=== PATIENT | female | born 1965 | race Caucasian/White ===

== ENCOUNTER → 2017-12-01 11:48 | Outpatient (CLI) | payer OTHER, SELFPAY | PROVIDERS: Visit Provider Family Medicine | DX: E03.9 Hypothyroidism, unspecified (principal); Z12.11 Encounter for screening for malignant neoplasm of colon | CPT/HCPCS: 36415; 84443 ==

== ENCOUNTER → 2017-12-09 11:03 | Outpatient (CLI) | payer OTHER, SELFPAY ==
[2017-12-12 15:10] LABS: Fecal Immunochemical Test NOT DETECTED
== END ==
PROVIDERS: Visit Provider Family Medicine
DX: Z12.11 Encounter for screening for malignant neoplasm of colon (principal)
CPT/HCPCS: 82274

== ENCOUNTER → 2019-05-01 10:40 | Outpatient (CLI) | payer OTHER, SELFPAY ==
[2019-05-01 13:46] LABS: Thyroid Stimulating Hormone 1.72 uIU/mL (0.47-4.68)
== END ==
PROVIDERS: PCP Family Medicine; Visit Provider Family Medicine
DX: E03.9 Hypothyroidism, unspecified (principal)
CPT/HCPCS: 36415; 84443

== ENCOUNTER → 2019-05-20 09:21 | Outpatient (CLI) | payer OTHER, SELFPAY ==
--- NOTE | 2019-05-20 09:22 | DI.RAD.S_ITS ---
PROCEDURE: XR HIP W PEL IF DONE RT 2V INDICATIONS: h/o hip fx s/p repair, fall, R hip/low back pain, r/o fx TECHNIQUE: AP pelvis with lateral view(s) of the right hip(s). COMPARISON: None. FINDINGS: Bones: Postsurgical changes compatible with ORIF of right femur fracture with placement of dynamic compression screw with sideplate. No fractures or dislocations. Pelvic ring appears intact. No suspicious bony lesions. Soft tissues: The visualized bowel gas pattern is normal. No suspicious soft tissue calcifications. IMPRESSION: Status post ORIF of right femur fracture. No acute fracture identified. No acute osseous lesion. If symptoms and/or clinical suspicion for pathology persists, further assessment with repeat radiographs (7-10 days) or advanced imaging (e.g. CT, MRI or bone scan) may be helpful. Dictated by: Danielle Mejía MD, PhD on 05/20/2019 at 10:06 Approved by: Danielle Mejía MD, PhD on 05/20/2019 at 10:07
--- NOTE | 2019-05-20 09:22 | DI.RAD.S_ITS ---
PROCEDURE: XR LUMBAR SPINE MIN 4V INDICATIONS: fall, R hip/low back pain, r/o fx TECHNIQUE: 5 views of the lumbar spine were acquired. COMPARISON: None. FINDINGS: Bones: 5 nonrib-bearing vertebrae are present. There is grade 1 L5-S1 isthmic spondylolisthesis.. No vertebral body compression fractures. No suspicious bony lesions. Soft tissues: Overlying bowel gas pattern is normal. No suspicious soft tissue calcifications. Oblique images: L5 pars interarticularis defects. IMPRESSION: 1. Grade 1 L5-S1 isthmic spondylolisthesis. 2. No acute fracture. No acute osseous lesion. If symptoms and/or clinical suspicion for pathology persists, evaluation with MRI may be helpful for further assessment. Dictated by: Danielle Mejía MD, PhD on 05/20/2019 at 10:02 Approved by: Danielle Mejía MD, PhD on 05/20/2019 at 10:03
== END ==
PROVIDERS: Family Provider Family Medicine; PCP Family Medicine; Visit Provider Physician Assistant
DX: M25.551 Pain in right hip (principal); M43.17 Spondylolisthesis, lumbosacral region
CPT/HCPCS: 72110; 73502

== ENCOUNTER → 2019-07-29 11:04 | Outpatient (CLI) | payer BC, SELFPAY ==
[2019-08-02 13:06] LABS: Fecal Immunochemical Test NOT DETECTED (NOT DETECTED)
== END ==
PROVIDERS: Family Provider Family Medicine; PCP Family Medicine; Referring Provider Family Medicine; Visit Provider Family Medicine
DX: Z12.11 Encounter for screening for malignant neoplasm of colon (principal)
CPT/HCPCS: 82274

== ENCOUNTER → 2020-08-09 16:52 | Outpatient (CLI) | payer BC, SELFPAY ==
--- NOTE | 2020-08-09 16:54 | DI.RAD.S_ITS ---
PROCEDURE: XR LUMBAR SPINE MIN 4V INDICATIONS: low back pain TECHNIQUE: 5 views of the lumbar spine were acquired, including bilateral oblique views. COMPARISON: [facility], CR, XR LUMBAR SPINE MIN 4V, 05/20/2019, 9:30. FINDINGS: Bones: 5 nonrib-bearing vertebrae are present. There is normal bony alignment. No vertebral body compression fractures. No suspicious bony lesions. There is moderately severe degenerative changes at the L5-S1 level where disc height reduction is moderately severe, and present to a moderate degree of L5 on S1 and facet osteoarthritis is pronounced, likely resulting in significant foraminal stenosis and possible spinal stenosis Soft tissues: Overlying bowel gas pattern is normal. No suspicious soft tissue calcifications. Oblique images: No pars defects. IMPRESSION: Worsening degenerative disc disease and facet osteoarthritis especially at the lumbosacral junction, with likelihood of significant spinal and foraminal stenosis at this level. No prior compression fracture is found. Dictated by: Misael Martinez M.D. on 08/09/2020 at 19:32 Approved by: Misael Martinez M.D. on 08/09/2020 at 19:34
== END ==
PROVIDERS: Family Provider Family Medicine; PCP Family Medicine; Referring Provider Family Medicine; Visit Provider Family Medicine
DX: M54.5 Low back pain (principal); M51.37 Other intervertebral disc degeneration, lumbosacral region; M47.817 Spondylosis without myelopathy or radiculopathy, lumbosacral region
CPT/HCPCS: 72110

== ENCOUNTER → 2020-08-25 15:57 | Outpatient (CLI) | payer OTHER, SELFPAY ==
[2020-08-25 17:16] LABS: COVID19 -Nasal RAPID Negative (Negative)
== END ==
PROVIDERS: Family Provider Family Medicine; PCP Family Medicine; Visit Provider Surgery
DX: Z20.822 Contact with and (suspected) exposure to COVID-19 (principal)
CPT/HCPCS: 87635; C9803

== ENCOUNTER 2020-08-28 07:33 | Day surgery (SDC) | payer OTHER, SELFPAY ==
[2020-08-28 07:52] VITALS: BP 139/90; PULSE 78; RESP 18; TEMP 36.6; O2SAT 95; BMI 30.1
[2020-08-28] MEDS: LACTATED RINGERS 1,000 ML 200 ML IV (08:03)
--- NOTE | 2020-08-28 08:26 | P.HP_ITS ---
History of Present Illness History of Present Illness Date Patient Seen: 08/28/20 Time Patient Seen: 08:26 Chief complaint: SDC Narrative: The patient presents for colorectal sreening. They have never had any previous examination for such. No personal history of colon cancer or first- degree relatives with colon cancer. On further history denies any recent gastrointestinal symptoms. No nausea, vomiting, abdominal pain, loss of appetite, unexplained weight loss, change in bowel habits, diarrhea, constipation, melena, hematochezia, or bright red blood per rectum. Patient History Medical History Anemia (~2011) Chicken pox (~1970) Depression (~1985) Fractures Hay fever (~1978) Hemorrhoid (~2013) History of urinary incontinence (~2012) Hypothyroidism (~2003) Migraines (~1993) Osteopenia Spondylolisthesis Surgical History Anesthesia History of tonsillectomy (~1970) Status post appendectomy (~1989) Status post tubal ligation (~2010) Surgical procedure planned (~2012) Family & Social History Family History Father Age: 85 Hypertension High cholesterol Grandmother Colon cancer Mother Age: 85 Hypertension High cholesterol Sister Age: 62 Stroke Social History: household members spouse lives independently Yes Tobacco & Substance use: Smoking Status Never smoker alcohol intake never Substance Use Type does not use Meds Home Medications and Allergies Home Medications Medication Instructions Recorded Confirmed Type lorazepam 0.5 mg tablet See Rx Instructions .ROUTE 02/10/20 08/28/20 Rx .COMPLEX #20 tab levothyroxine 112 mcg tablet 112 mcg PO QAM #90 tab 08/07/20 08/28/20 Rx sertraline 50 mg tablet 50 mg PO QDAY #90 tab 08/14/20 08/28/20 Rx ferrous sulfate [Iron (ferrous 325 mg PO DAILY 08/28/20 08/28/20 History sulfate)] Allergies Allergy/AdvReac Type Severity Reaction Status Date / Time Sulfa (Sulfonamide Allergy Mild skin Verified 05/25/19 15:32 Antibiotics) peeling, [SULFA (SULFONAMIDE hands and ANTIBIOTICS)] feet zolmitriptan [ZOLMITRIPTAN] Allergy Mild cold nose Verified 05/25/19 15:32 and cheeks Review of Systems Review of Systems ROS: Yes All systems reviewed with the patient and are negative except as otherwise documented Exam Vital Signs (past 8 hours): - 08/28/20 07:52 Temperature 97.8 F Pulse Rate 78 Respiratory Rate 18 Blood Pressure 139/90 Pulse Oximetry 95 Oxygen Delivery Method Room Air Oxygen Flow Rate 0 Narrative Exam Narrative: General-no acute distress, adult woman HEENT-moist mucous membranes, no scleral icterus Neck-supple, no lymphadenopathy Chest- non labored respirations, clear to auscultation bilaterally Cardiac-regular rate no peripheral edema Abdomen-soft, nontender nondistended Extremities-warm, well perfused Neurological-alert and oriented, no focal deficits Assessment & Plan Assessment & Plan narrative: The patient requires colorectal screening and colonoscopy is recommended. Technical details were discussed. Risks, benefits, alternatives explained. Risks including but not limited to myocardial infarction, aspiration, bleeding, pain, missed lesion, incomplete examination, need for further radiographic studies, colonic perforation, and need for major abdominal surgery were discussed. All questions were answered to their satisfaction, and they are in agreement with this plan. Quality MIPS - Admit Advanced Care Plan / Current Medications Measures: #47 ? Advanced Care Plan Clinician documentation instruction: document at admission. [] I confirmed that the patient's Advance Care Plan is present, code status is documented, or surrogate decision maker is listed in the patient?s medical record. [SATISFIES MIPS PERFORMANCE] If Yes, Stop Here [] The patient?s Advance Care plan is not present because: (select) [MIPS PERFORMANCE EXCEPTION/EXCLUSION] [] I confirmed today that the patient does not wish or was not able to name a surrogate decision maker or provide an Advance Care Plan. [] Hospice care is currently being provided or has been provided this calendar year [] I did NOT confirm today the presence of an Advance Care Plan or surrogate decision maker documented within the patient's medical record. [DOES NOT SATISFY MIPS PERFORMANCE] #130 - Documentation of Current Medications in the Medical Record Clinician documentation instruction: use macro the first time you see a patient. [] I have utilized all available immediate resources to obtain, update, or review the patient?s current medications. [SATISFIES MIPS PERFORMANCE] If Yes, Stop Here [] The patient is not eligible for medication reconciliation; the patient is in an emergent medical situation where delaying treatment would jeopardize the patient?s health. [MIPS PERFORMANCE EXCEPTION/EXCLUSION] [] I did NOT confirm, update or review the patient's current list of medications today. [DOES NOT SATISFY MIPS PERFORMANCE] MIPS - CL Central Venous Catheter Placement Measure: #76 ? Prevention of Central Venous Catheter (CVC) ? Related Bloodstream Infection Clinician documentation instruction: use macro every time you place a central line. [] All elements of Maximal Sterile Barrier Technique, including hand hygiene, skin prep, and sterile ultrasound technique (if used) were followed. [SATISFIES MIPS PERFORMANCE] If Yes, Stop Here [] If ?No?, the medical reason all elements were NOT used for medical reason [] (ex. emergent condition). [] Maximal Sterile Barrier Technique was not followed, no reason provided [DOES NOT SATISFY MIPS PERFORMANCE] MIPS - DC Heart Failure Measures: #5 - Heart Failure (HF): Angiotensin-Converting Enzyme (MINDA) Inhibitor or Angiotensin Receptor Junito (ARB) Therapy for Left Ventricular Systolic Dysfunction (LVSD) and #8 - Heart Failure (HF): Beta-Junito Therapy for Left Ventricular Systolic Dysfunction (LVSD) Clinician documentation instruction: use macro at every CHF discharge. [] The patient has current or prior documentation of left ventricular ejection fraction (LVEF) less than 40%, or moderate or severely depressed left ventricular systolic function. Answer both: [SATISFIES MIPS PERFORMANCE] [] The patient was prescribed or already taking an Angiotensin-Converting Enzyme (MINDA) Inhibitor, or Angiotensin Receptor Junito (ARB). [] The patient was prescribed or already taking a beta-junito. If Yes to Both, Stop Here [] Patient not prescribed/taking: [MIPS PERFORMANCE EXCEPTION/EXCLUSION] [] MINDA or ARB for medical/patient/system reason(s) including [] (ex. allergy, intolerance, contraindication) [] Beta-junito for medical/patient/system reason(s) including [] (ex. allergy, intolerance, contraindication) [] Patient not prescribed/taking: [DOES NOT SATISFY MIPS PERFORMANCE] [] MINDA or ARB, no reason given [] Beta-junito, no reason given
[2020-08-28] MEDS: MIDAZOLAM 5 MG/5 ML VIAL IV (08:36)
[2020-08-28] MEDS: fentaNYL 250 MCG/5 ML INJ IV (08:37)
--- NOTE | 2020-08-28 09:13 | PM.OP.ENDO ---
Operative Date/Time/Diagnoses Date of procedure: 08/28/20 Time of procedure: 09:13 Pre-op diagnosis: Screening colonoscopy Post-op diagnosis: same Procedure & Clinicians Study performed: Colonoscopy Same procedure as scheduled: Yes Indications: 54-year-old woman no prior colonoscopy here for routine screening Surgeon: Guerrero Diggs Procedure Notes Procedure in detail: Medications: Conscious sedation using 5mg IV midazolam and 150mcg IV of fentanyl The history and physical was performed/updated and the patient is ASA class is 1. The procedure was discussed in detail with the patient. Potential risks complications including infection, bleeding, missed diagnosis, perforation, need for surgery, and were explained. Their questions were answered and informed consent was obtained. Patient was brought to the procedure room and placed standard monitoring equipment. The patient's vital signs were monitored continuously throughout the entire procedure. Prior to starting time-out was performed. The patient was placed in the left lateral recumbent position. Procedural sedation was administered. Examination began with a thorough inspection of the perianal area there was no evidence of fissures, fistulae, external hemorrhoids or cutaneous malignancy. The colonoscopy scope was then placed into the anal canal and was advanced to the cecum, which was identified by the ileocecal valve, the appendiceal orifice and the confluence of the taenia. The scope was then slowly withdrawn examining colon thoroughly in all directions, irrigating it of any residual stool. No masses or polyps Sigmoid diverticulosis The patient tolerated the procedure well. They will be discharged once criteria are met. The prep was of good/excellent quality. The withdrawl time was 7 minutes. The sedation time was 32 minutes. Specimen(s): none sent Complications: none Impression: Normal colonoscopy Post-procedure Recommendations: Colonscopy in 10 years Disposition: same day surgery
[2020-08-28 09:17] VITALS: BP 107/65; PULSE 68; RESP 14; TEMP 36.7; O2SAT 95
[2020-08-28 09:22] VITALS: BP 104/61; PULSE 68; RESP 13; O2SAT 94
[2020-08-28 09:27] VITALS: BP 108/60; PULSE 64; RESP 13; O2SAT 98
[2020-08-28 09:32] VITALS: BP 114/76; PULSE 63; RESP 12; O2SAT 95
[2020-08-28 09:45] VITALS: BP 117/74; PULSE 59; RESP 16; TEMP 36.9; O2SAT 95
== END 2020-08-28 09:50 | disposition home or self-care (01) ==
PROVIDERS: Family Provider Family Medicine; PCP Family Medicine; Referring Provider Family Medicine; Visit Provider Surgery
PROC: 0DJD8ZZ Inspection of Lower Intestinal Tract, Via Natural or Artificial Opening Endoscopic (ICD-10-PCS; CPT 45378; principal; 2020-08-28 08:30)
DX: K57.30 Diverticulosis of large intestine without perforation or abscess without bleeding (principal); Z12.11 Encounter for screening for malignant neoplasm of colon; E03.9 Hypothyroidism, unspecified; D64.9 Anemia, unspecified
CPT/HCPCS: 45378; 99152; 99153; J2250; J3010

== ENCOUNTER → 2020-08-30 07:36 | Outpatient (CLI) | payer OTHER, SELFPAY ==
[2020-08-30 08:10] LABS: Add Manual Diff / Slide Review NO; Basophils Absolute Auto 0 /uL (0-100); Basophils Percent Auto 1.1 % (0-2); Eosinophils Absolute Auto 200 /uL (0-450); Eosinophils Percent Auto 4.8 % (2-4); Hemoglobin 13.6 g/dL (12.0-16.0); Lymphocytes Absolute Auto 1800 /uL (1100-4500); Mean Corpuscular HGB Conc 33.9 % (30-36); Mean Corpuscular Hemoglobin 29.2 PG (26-34); Monocytes Absolute Auto 300 /uL (0-900); Monocytes Percent Auto 7.6 % (3-14); Neutrophils Absolute Auto 1700 /uL (1500-7000); Neutrophils Percent Auto 41.5 % (50-75); Platelet Count 217 X10^3/uL (150-400); Red Blood Cell Count 4.65 X10^6/uL (4.0-5.2); Red Cell Distribution Width 12.9 % (11.6-14.8)
[2020-08-30 08:24] LABS: Alanine Aminotransferase 29 IU/L (<35); Albumin 4.6 g/dL (3.5-5.0); Albumin Globulin Ratio 1.4 (1.0-2.8); Alkaline Phosphatase 98 U/L (38-126); Aspartate Aminotransferase 35 IU/L (14-36); BUN Creatinine Ratio 22.1 (6-22); Bilirubin Total 0.4 mg/dL (0.2-1.3); Blood Urea Nitrogen 17 mg/dL (7-17); Calcium 9.9 mg/dL (8.4-10.2); Carbon Dioxide 30 mmol/L (22-32); Chloride 102 mmol/L (98-107); Cholesterol 212 mg/dL (140-199); Estimated Glomerular Filt Rate > 60.0 mL/min (>60); Globulin 3.3 g/dL (1.7-4.1); Glucose 95 mg/dL (70-100); HDL Cholesterol 56 mg/dL (40-60); HEMOLYSIS < 15 (0-50); LDL Cholesterol Calculated 116 mg/dL (<100); Potassium 4.6 mmol/L (3.4-5.1); Sodium 140 mmol/L (137-145); Total Protein 7.9 g/dL (6.3-8.2); Triglycerides 200 mg/dL (35-150)
== END ==
PROVIDERS: Family Provider Family Medicine; PCP Family Medicine; Referring Provider Family Medicine; Visit Provider Family Medicine
DX: E03.9 Hypothyroidism, unspecified (principal)
CPT/HCPCS: 36415; 80053; 80061; 84443; 85025

== ENCOUNTER → 2020-09-19 16:10 | Outpatient (CLI) | payer OTHER, SELFPAY ==
--- NOTE | 2020-09-19 16:13 | DI.MG.S_ITS ---
BILATERAL DIGITAL SCREENING MAMMOGRAM 3D/2D WITH CAD: 09/19/2020 CLINICAL: Routine screening. Comparison is made to exams dated: 10/18/2016 mammogram, 08/10/2015 mammogram, 02/22/2011 mammogram, and 09/10/2006 mammogram - [facility]. The tissue of both breasts is heterogeneously dense. This may lower the sensitivity of mammography. Current study was also evaluated with a Computer Aided Detection (CAD) system. No significant masses, calcifications, or other findings are seen in either breast. There has been no significant interval change. IMPRESSION: NEGATIVE There is no mammographic evidence of malignancy. A 1 year screening mammogram is recommended. This exam was interpreted at Station ID: [id number]. NOTE: For mammograms, a report in lay terms will be sent to the patient. Approximately 15% of breast malignancies will not be visualized mammographically. In the management of a palpable breast mass, a negative mammogram must not discourage biopsy of a clinically suspicious lesion. Electronically Signed By: Landen long/aleksandar:09/20/2020 07:24:03 letter sent: Normal Exam ACR BI-RADS Category 1: Negative [id number]
--- NOTE | 2020-09-19 16:13 | DI.MRI.S_ITS ---
PROCEDURE: MR LUMBAR SPINE WO CON COMPARISON: [facility], CR, XR HIP W PEL IF DONE RT 2V, 05/20/2019, 9:30. [facility], CR, XR LUMBAR SPINE MIN 4V, 05/20/2019, 9:30. [facility], CR, XR LUMBAR SPINE MIN 4V, 08/09/2020, 17:08. INDICATIONS: Right L5 radiculopathy FINDINGS: CONUS MEDULLARIS: Conus terminates normally at L1-2. The distal cord, conus, and cauda equina have normal signal. PARASPINAL AREA: There is no paraspinal soft tissue mass or fluid collection. The visualized kidneys and adrenal glands are grossly normal. The aorta has a normal caliber. BONES: No abnormal marrow signal. Vertebral body heights are maintained. There is facet arthrosis at L5-S1 with possible pars defects. LUMBAR DISC LEVELS: L1-L2: There is no significant disc bulge. The foramina and central canal are patent. L2-L3: There is no significant disc bulge. The foramina and central canal are patent. L3-L4: There is no significant disc bulge. The foramina and central canal are patent. L4-L5: Diffuse disc bulge causing minimal foraminal stenosis. The central canal is patent. L5-S1: There are degenerative changes of L5-S1 with grade 1 anterolisthesis and a diffuse disc bulge. Disc bulge causes [id number] bilateral foraminal stenosis. No focal protrusion or extrusion.. The central canal is widely patent. IMPRESSION: 1. Degenerative disc disease, most severe at L5-S1 with grade 1 anterolisthesis and mild to moderate bilateral foraminal stenosis. 2. No significant central canal stenosis. Dictated by: Niraj Degroot M.D. on 09/20/2020 at 8:33 Approved by: Niraj Degroot M.D. on 09/20/2020 at 8:46
== END ==
PROVIDERS: Family Provider Family Medicine; PCP Family Medicine; Referring Provider Physical Medicine & Rehabilitation; Visit Provider Physical Medicine & Rehabilitation
DX: Z12.31 Encounter for screening mammogram for malignant neoplasm of breast (principal); M43.17 Spondylolisthesis, lumbosacral region; M51.17 Intervertebral disc disorders with radiculopathy, lumbosacral region; M48.07 Spinal stenosis, lumbosacral region
CPT/HCPCS: 72148; 77063; 77067

== ENCOUNTER → 2020-09-26 15:50 | Outpatient (CLI) | payer OTHER, SELFPAY ==
[2020-09-26 16:28] LABS: COVID19 -Nasal RAPID Negative (Negative)
== END ==
PROVIDERS: Family Provider Family Medicine; PCP Family Medicine; Visit Provider Physical Medicine & Rehabilitation
DX: Z20.822 Contact with and (suspected) exposure to COVID-19 (principal)
CPT/HCPCS: 87635; C9803

== ENCOUNTER 2020-09-28 09:28 | Outpatient (CLI) | payer OTHER, SELFPAY ==
[2020-09-28] VITALS (8 sets, daily range): BP systolic 102–129; BP diastolic 60–79; PULSE 62–86; RESP 10–19; TEMP 36.6–36.9; O2SAT 2–97
--- NOTE | 2020-09-28 09:32 | DI.RAD.S_ITS ---
PROCEDURE: PAIN L/S TRANSFORAMINAL INJECT INDICATIONS: SPONDYLOSIS COMPARISON: [facility], CR, XR LUMBAR SPINE MIN 4V, 08/09/2020, 17:08. FINDINGS: Fluoroscopic spot filming was performed to verify placement of a spinal needle at the L5-S1 level, as labeled on the films. Appropriate location of the needle tip was confirmed by injection of iodinated contrast. IMPRESSION: No significant intraprocedural abnormality. Dictated by: Greg Nuñez M.D. on 09/28/2020 at 10:50 Approved by: Greg Nuñez M.D. on 09/28/2020 at 10:50
[2020-09-28] MEDS: fentaNYL 100 MCG/2 ML INJ 50 MCG IV (10:26)
[2020-09-28] MEDS: MIDAZOLAM 5 MG/5 ML VIAL IV (10:26)
[2020-09-28] MEDS: BUPIVACAINE 0.25% (PF) VIAL 2 ML INJ (10:31)
[2020-09-28] MEDS: BETAMETHASONE 30 MG/5 ML MDV 6 MG INJ (10:31)
[2020-09-28] MEDS: IOPAMIDOL 15 ML VIAL 3 ML INJ (10:31)
[2020-09-28] MEDS: DEXAMETHASONE 10 MG/ML VIAL 20 MG INJ (10:32)
--- NOTE | 2020-09-28 10:42 | P.PCN_ITS ---
Date/Time/Diagnoses Date of procedure: 09/28/20 Time of procedure: 10:42 Pre-procedure diagnosis: 1. FORAMINAL STENOSIS WITH LE SYMPTOMS Post-procedure diagnosis: same Procedure Notes Procedure: 1. FLUOROSCOPICALLY GUIDED CONTRAST CONTROLLED TRANSFORAMINAL EPIDURAL STEROID INJECTION - RIGHT L5/S1 TFESI Indications: Valeria is referred by Dr. Perry for treatment of Foraminal Stenosis with Right LE Symptoms Physician: Jean Pierre Gamble Total Fluoroscopy time (seconds): 7 Total sedation minutes: 13 Complications: none Procedure in detail & Post-procedure care: FINDINGS Foraminal Nerve Root Compression secondary to disc disease and facet hypertrophy DESCRIPTION OF PROCEDURE Following review of allergy and review of potential side effects and complications, including, but not necessarily limited to, infection, allergic reaction, local tissue breakdown, stroke, temporary or permanent nerve injury, paralysis, and possible , the patient indicated that the patient understood and agreed to proceed. An informed consent document was signed by the patient, witnessed by a nurse, and placed in the patient's chart. Additionally, other treatment options including medications, modalities, and physical therapy were reviewed with the patient. After review of previous anaesthesic history and IV conscious sedation the patient was deemed safe to proceed with today?s procedure with IV conscious sedation as ASA class II designation. Safety time-out was performed to confirm patient ID, procedure to be performed and site of procedure. IV sedation was accomplished with a combination of 2mg of Versed and 50mcg of Fentanyl was administered by the RN after DO order, titrated to patient comfort during the course of the procedure while the patient remained responsive to all verbal commands In the prone position following sterile prep and drape of the lumbar region, the right L5/S1 posterior neuroforamen was identified fluoroscopically. The skin was anesthetized via a 25-gauge 1.5-inch needle with 1% lidocaine solution. At this point, a 25-gauge 3.5-inch spinal needle was atraumatically introduced and advanced under fluoroscopic guidance through the posterior right L5/S1 neuroforamen to approximately the anterior aspect of the canal. Depth was confirmed on lateral view. Following negative aspiration, injection of approximately 1.5cc of Isovue 200 under live fluoroscopy in the AP view confirmed excellent flow along the nerve root, into the epidural space without vascular or intrathecal uptake observed Radiological data, including multiple fluoroscopic views of the lumbosacral spine, reveal a spinal needle at the right L5/S1 posterior neuroforamen. Subsequent views show flow of contrast material flowing superiorly and inferiorly along the nerve root confirming epidural flow. Subsequently, a test dose of 1.5 cc of 1% lidocaine solution was administered and patient was observed for two minutes for signs or symptoms of complications, including abdominal pain, shortness of breath, bilateral upper or lower extremity weakness, nausea and vomiting, prior to steroid injection. At this point, a total of 3cc or 20mg of dexamethasone and 6mg of betamethasone was injected without incident. The procedure tolerated the procedure well without signs or symptoms of complications prior to transfer to the recovery area continued monitoring without incident. The patient was then transferred to the recovery area where they were observed for an appropriate time after the injection. The patient reported a VAS score of 7 prior to the procedure and a post- procedure VAS of 0. POST OP INSTRUCTIONS The patient was provided a Pain Log to continue to record their response to the target-specific procedure prior to follow-up visit with their referring physician. Additionally, specific post-injection care instructions and a contact number to our office were provided if concerns arise regarding possible complications associated with the procedure are suspected.
== END 2020-09-28 11:01 | disposition home or self-care (01) ==
PROVIDERS: Family Provider Family Medicine; PCP Family Medicine; Referring Provider Physical Medicine & Rehabilitation; Visit Provider Physical Medicine & Rehabilitation
DX: M48.07 Spinal stenosis, lumbosacral region (principal); M51.17 Intervertebral disc disorders with radiculopathy, lumbosacral region
CPT/HCPCS: 64483; 99152; J0702; J1100; J2250; J3010

== ENCOUNTER → 2021-02-20 08:12 | Outpatient (CLI) | payer OTHER, SELFPAY ==
[2021-02-20 10:02] LABS: COVID19 -Nasal RAPID Negative (Negative)
== END ==
PROVIDERS: Family Provider Family Medicine; PCP Family Medicine; Visit Provider Physical Medicine & Rehabilitation
DX: Z20.822 Contact with and (suspected) exposure to COVID-19 (principal)
CPT/HCPCS: 87635; C9803

== ENCOUNTER 2021-02-22 09:45 | Outpatient (CLI) | payer OTHER, SELFPAY ==
[2021-02-22] VITALS (7 sets, daily range): BP systolic 98–144; BP diastolic 56–88; PULSE 60–68; RESP 11–19; TEMP 36.8; O2SAT 93–98
--- NOTE | 2021-02-22 09:47 | DI.RAD.S_ITS ---
PROCEDURE: PAIN L/SI FACET INJ/BLK 1STL INDICATIONS: SPONDYLOSIS COMPARISON: None. FINDINGS: Fluoroscopic spot filming was performed to verify placement of spinal needles at the lower lumbar level(s), as labeled on the films. Appropriate location(s) of the needle tip(s) was confirmed by injection of iodinated contrast. IMPRESSION: Lower lumbar injection. Dictated by: Yael Cleary M.D. on 02/22/2021 at 13:59 Approved by: Yael Cleary M.D. on 02/22/2021 at 13:59
[2021-02-22] MEDS: MIDAZOLAM 5 MG/5 ML VIAL IV (10:35)
[2021-02-22] MEDS: fentaNYL 100 MCG/2 ML INJ 50 MCG IV (10:35)
[2021-02-22] MEDS: IOPAMIDOL 15 ML VIAL 3 ML INJ (10:38)
[2021-02-22] MEDS: BUPIVACAINE 0.5% (PF) VIAL 2 ML INJ (10:38)
[2021-02-22] MEDS: BETAMETHASONE 30 MG/5 ML MDV 12 MG INJ (10:39)
--- NOTE | 2021-02-22 10:46 | P.PCN_ITS ---
Date/Time/Diagnoses Date of procedure: 02/22/21 Time of procedure: 10:46 Pre-procedure diagnosis: 1. FACET ARTHROPATHY, 2. AXIAL LBP, 3. MULTILEVEL DDD Post-procedure diagnosis: same Procedure Notes Procedure: 1. FLUOROSCOPICALLY GUIDED CONTRAST CONTROLLED FACET JOINT INJECTIONS RIGHT L4/5, L5/S1 Indications: Valeria is referred by Dr. Perry for treatment of Axial LBP Physician: Jean Pierre Gamble Total Fluoroscopy time (seconds): 8 Total sedation minutes: 8 Complications: none Procedure in detail & Post-procedure care: FINDINGS Multilevel Facet Arthropathy with Clinically significant axial LBP DESCRIPTION OF PROCEDURE Fluoroscopically guided, contrast-controlled right L4/5, L5/S1 facet joint injections. Following review of allergy and review of potential side effects and complications, including, but not necessarily limited to, infection, allergic reaction, local tissue breakdown, stroke, temporary or permanent nerve injury, paralysis, and possible , the patient indicated that the patient understood and agreed to proceed. An informed consent document was signed by the patient, witnessed by a nurse, and placed in the patient's chart. Additionally, other t reatment options including medications, modalities, and physical therapy were reviewed with the patient. After review of previous anaesthesic history and IV conscious sedation the patient was deemed safe to proceed with today?s procedure with IV conscious sedation as ASA class II designation. Safety time-out was performed to confirm patient ID, procedure to be performed and site of procedure. IV sedation was accomplished with a combination of 2mg of Versed and 50mcg of Fentanyl was administered by the RN after DO order, titrated to patient comfort during the course of the procedure while the patient remained responsive to all verbal commands. In the prone position, following sterile prep and drape of the lumbar region, the posterior aspect of the right L4/5, L5/S1 facet joints were identified fluoroscopically. The skin was anesthetized via a 25-gauge 1.5-inch needle with 1% lidocaine solution into the corresponding facet joints. At this point, a 22- gauge 3.5-inch spinal needle was atraumatically introduced and advanced under fluoroscopic guidance into the corresponding facet joints. Following negative aspiration, injections of approximately 0.2-cc of Isovue 200 confirmed in terarticular placement without vascular uptake. Radiological data, including multiple fluoroscopic views of the lumbosacral spine, reveal a spinal needle at the right L4/5, L5/S1 facet joints. Subsequent views show flow of contrast material both superiorly and inferiorly within the joint space without vascular or intrathecal uptake. At this point, a total of 0.5cc including a mixture of 0.25cc Marcaine and 0.25cc betamethasone was injected without complication into each of the corresponding facet joints. The procedure tolerated the procedure well without signs or symptoms of complica tions prior to transfer to the recovery area continued monitoring without incident. The patient was then transferred to the recovery area where they were observed for an appropriate period of time after the injection. The patient reported a VAS score of 7 prior to the procedure and a post-procedure VAS of 0. POST OP INSTRUCTIONS The patient was provided a Pain Log to continue to record their response to the target-specific procedure prior to follow-up visit with their referring physician. Additionally, specific post-injection care instructions and a contact number to our office were provided if concerns arise regarding possible complications associated with the procedure are suspected.
== END 2021-02-22 11:06 | disposition home or self-care (01) ==
PROVIDERS: Family Provider Family Medicine; PCP Family Medicine; Referring Provider Physical Medicine & Rehabilitation; Visit Provider Physical Medicine & Rehabilitation
DX: M47.816 Spondylosis without myelopathy or radiculopathy, lumbar region (principal); M47.817 Spondylosis without myelopathy or radiculopathy, lumbosacral region; M51.36 Other intervertebral disc degeneration, lumbar region; M51.37 Other intervertebral disc degeneration, lumbosacral region; M54.5 Low back pain
CPT/HCPCS: 64493; 64494; J0702; J2250; J3010

== ENCOUNTER → 2021-05-30 12:06 | Outpatient (CLI) | payer OTHER, SELFPAY ==
[2021-05-30 13:26] LABS: COVID19 -Nasal RAPID Negative (Negative)
== END ==
PROVIDERS: Family Provider Family Medicine; PCP Family Medicine; Visit Provider Nurse Practitioner Family
DX: Z20.822 Contact with and (suspected) exposure to COVID-19 (principal); R05.9 Cough, unspecified; R09.81 Nasal congestion; R51.9 Headache, unspecified; J02.9 Acute pharyngitis, unspecified
CPT/HCPCS: 87635

== ENCOUNTER → 2022-02-28 17:11 | Outpatient (CLI) | payer OTHER, SELFPAY ==
--- NOTE | 2022-02-28 17:12 | DI.RAD.S_ITS ---
PROCEDURE: XR LUMBAR SPINE MIN 4V INDICATIONS: L5-S1 slip status post fall, obliques and flex/ext views TECHNIQUE: Seven views of the lumbar spine including obliques and flexion and extension. COMPARISON: [facility], , XR LUMBAR SPINE MIN 4V, 08/09/2020, 17:08. FINDINGS: Bones: Five nonrib-bearing vertebrae are present. There is grade 1 anterolisthesis L5 on S1 with severe disc height loss at this level. Trace retrolisthesis L4-5. There is no change in alignment in flexion or extension. There is moderate facet sclerosis at L5-S1 bilaterally. Oblique images do not demonstrate pars defects, though this may be obscured by sclerotic change and overlapping bony shadows. No vertebral body compression fractures. No suspicious bony lesions. Soft tissues: Overlying bowel gas pattern is normal. No suspicious soft tissue calcifications. IMPRESSION: 1. Stable, grade 1 anterolisthesis L5-S1 with severe disc height loss, slightly advanced compared to the prior year study. 2. Trace retrolisthesis L4-5. 3. No change in alignment with flexion or extension at either level. Dictated by: Lesly Saldivar M.D. on 03/01/2022 at 11:23 Approved by: Lesly Saldivar M.D. on 03/01/2022 at 11:27
== END ==
PROVIDERS: Family Provider Family Medicine; PCP Family Medicine; Referring Provider Physical Medicine & Rehabilitation; Visit Provider Physical Medicine & Rehabilitation
DX: M43.17 Spondylolisthesis, lumbosacral region (principal); M47.816 Spondylosis without myelopathy or radiculopathy, lumbar region; M54.17 Radiculopathy, lumbosacral region
CPT/HCPCS: 72110; 99213

== ENCOUNTER → 2022-04-01 16:41 | Outpatient (CLI) | payer OTHER, SELFPAY ==
[2022-04-01 17:32] LABS: Add Manual Diff / Slide Review NO; Basophils Absolute Auto 0 /uL (0-100); Basophils Percent Auto 0.7 % (0-2); Eosinophils Absolute Auto 100 /uL (0-450); Eosinophils Percent Auto 1.9 % (2-4); Hematocrit 37.2 % (36-46); Hemoglobin 12.5 g/dL (12.0-16.0); Lymphocytes Absolute Auto 2600 /uL (1100-4500); Lymphocytes Percent Auto 40.5 % (25-40); Mean Corpuscular HGB Conc 33.5 % (30-36); Mean Corpuscular Hemoglobin 28.3 PG (26-34); Mean Corpuscular Volume 84.6 fL (80-100); Monocytes Absolute Auto 300 /uL (0-900); Monocytes Percent Auto 5.4 % (3-14); Neutrophils Absolute Auto 3300 /uL (1500-7000); Neutrophils Percent Auto 51.5 % (50-75); Platelet Count 289 X10^3/uL (150-400); Red Cell Distribution Width 13.3 % (11.6-14.8); White Blood Cell Count 6.4 X10^3/uL (4.5-11.0)
[2022-04-01 17:51] LABS: Alanine Aminotransferase 30 IU/L (<35); Albumin 4.6 g/dL (3.5-5.0); Albumin Globulin Ratio 1.2 (1.0-2.8); Alkaline Phosphatase 105 U/L (38-126); Aspartate Aminotransferase 27 IU/L (14-36); BUN Creatinine Ratio 25.7 (6-22); Bilirubin Total 0.4 mg/dL (0.2-1.3); Blood Urea Nitrogen 19 mg/dL (7-17); Calcium 9.6 mg/dL (8.4-10.2); Carbon Dioxide 30 mmol/L (22-32); Chloride 99 mmol/L (98-107); Estimated Glomerular Filt Rate > 60 mL/min (>60); Globulin 3.7 g/dL (1.7-4.1); Glucose 94 mg/dL (70-100); HEMOLYSIS < 15 (0-50); Potassium 4.2 mmol/L (3.4-5.1); Sodium 136 mmol/L (137-145); Total Protein 8.3 g/dL (6.3-8.2)
[2022-04-01 18:22] LABS: TSH w/ Reflex to FT4 1.02 uIU/mL (0.47-4.68)
[2022-04-01 18:27] LABS: Ferritin 65 ng/mL (11-264)
== END ==
PROVIDERS: Family Provider Family Medicine; PCP Family Medicine; Referring Provider Family Medicine; Visit Provider Family Medicine
DX: L65.9 Nonscarring hair loss, unspecified (principal); E03.9 Hypothyroidism, unspecified; D70.9 Neutropenia, unspecified
CPT/HCPCS: 36415; 80053; 82728; 84443; 85025

== ENCOUNTER 2022-08-06 09:51 | Outpatient (CLI) | payer OTHER, SELFPAY ==
[2022-08-06] VITALS (8 sets, daily range): BP systolic 110–134; BP diastolic 64–83; PULSE 55–69; RESP 18–20; TEMP 36.3; O2SAT 92–97
--- NOTE | 2022-08-06 09:52 | DI.RAD.S_ITS ---
PROCEDURE: PAIN L/SI FACET INJ/BLK 1STL INDICATIONS: SPONDYLOSIS COMPARISON: [facility], XA, PAIN L/SI FACET INJ/BLK 1STL, 02/22/2021, 10:37. FINDINGS: Fluoroscopic image demonstrates that 3 needles have been placed in the lower left lumbar region for a medial branch block procedure. IMPRESSION: Imaging guidance utilized by the referring interventional pain physician for performance a lumbar medial branch block procedure. Dictated by: Kp Arboleda M.D. on 08/06/2022 at 17:15 Approved by: Kp Arboleda M.D. on 08/06/2022 at 17:16
[2022-08-06] MEDS: MIDAZOLAM 2 MG/2 ML VIAL IV (10:37)
[2022-08-06] MEDS: BUPIVACAINE 0.5% (PF) 30 ML VIAL 5 ML INJ (10:38)
[2022-08-06] MEDS: IOPAMIDOL 15 ML VIAL 3 ML INJ (10:40)
[2022-08-06] MEDS: LIDOCAINE 1% (PF) 5 ML INJ (10:41)
--- NOTE | 2022-08-06 10:53 | PM.PROC.IR.1 ---
Date/Time/Diagnoses Date of procedure: 08/06/22 Time of procedure: 10:53 Pre-procedure diagnosis: 1. FACET ARTHROPATHY Post-procedure diagnosis: same Procedure Notes Procedure: 1. Left L4, L5 and S1 MB BLOCKS LA Indications: Valeria is referred by Dr. Perry for treatment of Left Axial LBP. Physician: Jean Pierre Gamble Total Fluoroscopy time (seconds): 5 Total sedation minutes: 10 Complications: none Procedure in detail & Post-procedure care: DESCRIPTION OF PROCEDURE Fluoroscopically guided, contrast-controlled left L4, L5 and S1 medial branch blocks with 0.5cc of 0.5% Marcaine. Following review of allergy and review of potential side effects and complications, including, but not necessarily limited to, infection, allergic reaction, local tissue breakdown, nerve injury, paralysis, stroke and possible , the patient indicated that the patient understood and agreed to proceed. An informed consent document was signed by the patient, witnessed by a nurse, and placed in the patient's chart. After review of previous anaesthesic history and IV conscious sedation the patient was deemed safe to proceed with today?s procedure with IV conscious sedation as ASA class II designation. Safety time-out was performed to confirm patient ID, procedure to be performed and site of procedure. IV sedation was accomplished with a combination of 2mg of Versed was administered by the RN after DO order, titrated to patient comfort during the course of the procedure while the patient remained responsive to all verbal commands. In the prone position, following sterile prep and drape of the lumbar region, the left L4, L5 and S1 anatomical location of the medial branch of the dorsal ramus was identified fluoroscopically. Subsequently an anesthetic skin wheal using 1% lidocaine solution was initiated at each of the anatomical spots. Subsequently then a 22-gauge 3.5-inch spinal needle was atraumatically introduced and advanced under fluoroscopic guidance at each of the corresponding sites at the left L4, L5 and S1 MB. After negative aspiration, 0.2cc of Isovue 200 was injected, confirming placement without vascular or intrathecal uptake. Subsequently then 0.5cc of 0.5% Marcaine solution was injected at each of the corresponding sites at the left L4, L5 and S1 medial branch locations. The patient tolerated the procedure well without signs or symptoms of complications. The patient tolerated the procedure well without signs or symptoms of complications prior to transfer to the recovery area continued monitoring without incident. Post-procedure, the patient was monitored initiating provocative activities to measure the amount of relief from block of the facetogenic pain. The patient reported a VAS of 7 prior to the procedure and a post-procedure VAS of 1. It has been a pleasure to assist in the diagnostic and therapeutic care of your patient. POST OP INSTRUCTIONS The patient was provided with a Pain Log to complete over the next several hours and subsequent days prior to the patient's follow up with the ordering physician. If the patient has windows security engineer relief to the solution applied, then they may be a candidate for medial branch rhizotomy. The patient is aware, was provided, once again, with a Pain Log and will follow up with the referring physician for review and clinical correlation.
== END 2022-08-06 11:10 | disposition home or self-care (01) ==
PROVIDERS: Family Provider Family Medicine; PCP Family Medicine; Referring Provider Physical Medicine & Rehabilitation; Visit Provider Physical Medicine & Rehabilitation
DX: M47.816 Spondylosis without myelopathy or radiculopathy, lumbar region (principal); M47.817 Spondylosis without myelopathy or radiculopathy, lumbosacral region
CPT/HCPCS: 64493; 64494; 99152; J2250

== ENCOUNTER → 2023-01-13 09:12 | Outpatient (CLI) | payer OTHER, SELFPAY ==
--- NOTE | 2023-01-13 09:14 | DI.MRI.S_ITS ---
PROCEDURE: MR LUMBAR SPINE WO CON INDICATIONS: L5-S1 spondylolisthesis, bilateral hip pain TECHNIQUE: Noncontrast sagittal T1 spin echo and T2 fast echo, sagittal STIR, and T2 fast spin echo through the lumbar spine. In cases with scoliosis, additional coronal T2 fast spin echo may be performed. COMPARISON: [facility], CR, XR LUMBAR SPINE MIN 4V, 02/28/2022, 17:27. [facility], MR, MR LUMBAR SPINE WO CON, 09/19/2020, 16:27. FINDINGS: Image quality: Excellent. Alignment and Curvature: There is grade 1 L5-S1 anterolisthesis, with associated bilateral pars defects. Bone Marrow: Marrow is of normal overall signal. No acute vertebral body compression fractures. Spinal Cord: Conus medullaris terminates at the L1 level. Visualized cord demonstrates normal signal and size. Paraspinous Soft Tissues: No paravertebral masses. T12-L1: Normal appearance. L1-L2: Normal appearance. L2-L3: Normal appearance. L3-L4: The disc height and disk signal are well-preserved. Mild disc bulge is seen, which is slightly eccentric to the left. Mild facet joint hypertrophy is seen. There is mild left-sided and no right-sided neural foraminal narrowing. The central canal is widely patent. L4-L5: The disc height and disk signal are well-preserved. Mild to moderate disc bulge is seen, which is eccentric to the right. Mild to moderate facet hypertrophy is seen. Mild bilateral neural foraminal narrowing is seen. No central canal narrowing is seen. L5-S1: Moderate to severe loss of disc height and disc signal can be seen. Reactive marrow endplate changes are seen which are hypointense on T1-weighted imaging and hyperintense on T2 weighted imaging, which is most consistent with edema (Modic type I changes). Moderate disc bulge is seen, which is eccentric to the right. There is a central/right disc extrusion, with superior migration of the disc material, as on series 3, image 8 and on series 6, image 9. There is moderate to severe bilateral neural foraminal narrowing seen, with an associated a degree of compression seen upon the exiting nerve roots. Minimal central canal narrowing is seen. When comparison is made with the prior images, these findings are similar. IMPRESSION: Lower lumbar spine degenerative changes are seen, which are worst at the L5-S1 level. On the right side of L5-S1, there is a mild disc extrusion seen. Dictated by: Greg Nuñez M.D. on 01/13/2023 at 11:22 Approved by: Greg Nuñez M.D. on 01/13/2023 at 11:26
== END ==
PROVIDERS: Family Provider Family Medicine; PCP Family Medicine; Referring Provider Physical Medicine & Rehabilitation; Visit Provider Physical Medicine & Rehabilitation
DX: M47.27 Other spondylosis with radiculopathy, lumbosacral region (principal); M51.17 Intervertebral disc disorders with radiculopathy, lumbosacral region; M47.26 Other spondylosis with radiculopathy, lumbar region; M43.17 Spondylolisthesis, lumbosacral region
CPT/HCPCS: 72148

== ENCOUNTER → 2023-04-03 11:16 | Outpatient (CLI) | payer OTHER, SELFPAY ==
--- NOTE | 2023-04-03 | DI.MG.S_ITS ---
BILATERAL DIGITAL SCREENING MAMMOGRAM 3D/2D WITH CAD: 04/03/2023 CLINICAL: Routine screening. Comparison is made to exams dated: 09/19/2020 mammogram, 10/18/2016 mammogram, and 08/10/2015 mammogram - [facility]. Both breasts are heterogeneously dense, which may obscure small masses (category c / 51-75% glandular tissue). Current study was also evaluated with a Computer Aided Detection (CAD) system. No significant masses, calcifications, or other findings are seen in either breast. There has been no significant interval change. IMPRESSION: NEGATIVE There is no mammographic evidence of malignancy. A 1 year screening mammogram is recommended. Based on the Tyrer Cuzick model (a risk assessment model) the patient's lifetime risk is 11.2% and her 10 year risk is 3.9%. According to the ACR, ACS, and NCCN guidelines, an annual breast MRI exam along with mammogram is recommended if the patient's lifetime risk is 20% or greater. This exam was interpreted at Station ID: [id number]. NOTE: For mammograms, a report in lay terms will be sent to the patient. Approximately 15% of breast malignancies will not be visualized mammographically. In the management of a palpable breast mass, a negative mammogram must not discourage biopsy of a clinically suspicious lesion. Electronically Signed By: Yuri hester/[email or web address]:04/03/2023 16:37:31 letter sent: Normal Exam ACR BI-RADS Category 1: Negative [id number]
== END ==
PROVIDERS: Family Provider Family Medicine; PCP Student in an Organized Health Care Education/Training Program; Referring Provider Student in an Organized Health Care Education/Training Program; Visit Provider Student in an Organized Health Care Education/Training Program
DX: Z12.31 Encounter for screening mammogram for malignant neoplasm of breast (principal)
CPT/HCPCS: 77063; 77067

== ENCOUNTER → 2024-02-12 16:58 | Outpatient (CLI) | payer OTHER, SELFPAY ==
[2024-02-12 18:09] LABS: Alanine Aminotransferase 15 IU/L (<35); Aspartate Aminotransferase 29 IU/L (14-36)
== END ==
LOC: LAB 16:58
PROVIDERS: Family Provider Family Medicine; PCP Student in an Organized Health Care Education/Training Program; Referring Provider Podiatrist Foot & Ankle Surgery; Visit Provider Podiatrist Foot & Ankle Surgery
DX: B35.1 Tinea unguium (principal)
CPT/HCPCS: 36415; 84450; 84460

== ENCOUNTER → 2024-05-13 11:09 | Outpatient (CLI) | payer OTHER, SELFPAY ==
[2024-05-13 11:59] LABS: Add Manual Diff / Slide Review NO; Basophils Absolute Auto 0 /uL (0-100); Basophils Percent Auto 1.1 % (0-2); Eosinophils Absolute Auto 100 /uL (0-450); Eosinophils Percent Auto 1.9 % (2-4); Hematocrit 32.3 % (36-46); Hemoglobin 10.7 g/dL (12.0-16.0); Lymphocytes Absolute Auto 1400 /uL (1100-4500); Lymphocytes Percent Auto 44.1 % (25-40); Mean Corpuscular HGB Conc 33.2 % (30-36); Mean Corpuscular Hemoglobin 28.8 PG (26-34); Mean Corpuscular Volume 86.5 fL (80-100); Monocytes Absolute Auto 200 /uL (0-900); Monocytes Percent Auto 7.3 % (3-14); Neutrophils Absolute Auto 1500 /uL (1500-7000); Neutrophils Percent Auto 45.6 % (50-75); Platelet Count 225 X10^3/uL (150-400); Red Blood Cell Count 3.73 X10^6/uL (4.0-5.2); White Blood Cell Count 3.3 X10^3/uL (4.5-11.0)
[2024-05-13 12:38] LABS: Alanine Aminotransferase 18 IU/L (<35); Albumin 4.2 g/dL (3.5-5.0); Albumin Globulin Ratio 1.7 (1.0-2.8); Alkaline Phosphatase 79 U/L (38-126); Aspartate Aminotransferase 28 IU/L (14-36); BUN Creatinine Ratio 22.8 (6-22); Bilirubin Total 0.5 mg/dL (0.2-1.3); Blood Urea Nitrogen 18 mg/dL (7-17); Calcium 9.5 mg/dL (8.4-10.2); Carbon Dioxide 29 mmol/L (22-32); Chloride 104 mmol/L (98-107); Cholesterol 241 mg/dL (140-199); Estimated Glomerular Filt Rate > 60 mL/min (>60); Globulin 2.5 g/dL (1.7-4.1); Glucose 88 mg/dL (70-100); HDL Cholesterol 84 mg/dL (40-60); HEMOLYSIS < 15 (0-50); LDL Cholesterol Calculated 142 mg/dL (<100); Sodium 137 mmol/L (137-145); Total Protein 6.7 g/dL (6.3-8.2); Triglycerides 73 mg/dL (35-150)
[2024-05-13 13:01] LABS: TSH w/ Reflex to FT4 1.98 uIU/mL (0.47-4.68)
== END ==
PROVIDERS: Family Provider Family Medicine; PCP Student in an Organized Health Care Education/Training Program; Referring Provider Student in an Organized Health Care Education/Training Program; Visit Provider Student in an Organized Health Care Education/Training Program
DX: E03.9 Hypothyroidism, unspecified (principal); F41.8 Other specified anxiety disorders; Z79.899 Other long term (current) drug therapy; Z13.220 Encounter for screening for lipoid disorders
CPT/HCPCS: 36415; 80053; 80061; 84443; 85025

== ENCOUNTER → 2024-06-08 11:47 | Outpatient (CLI) | payer OTHER, SELFPAY ==
--- NOTE | 2024-06-08 11:49 | DI.MG.S_ITS ---
BILATERAL DIGITAL SCREENING MAMMOGRAM 3D/2D WITH CAD: 06/08/2024 CLINICAL: Routine screening. Comparison is made to exams dated: 04/03/2023 mammogram, 09/19/2020 mammogram, and 10/18/2016 mammogram - [facility]. The breasts are heterogeneously dense, which may obscure small masses (category c / 51-75% glandular tissue). Current study was also evaluated with a Computer Aided Detection (CAD) system. No significant masses, calcifications, or other findings are seen in either breast. There has been no significant interval change. IMPRESSION: NEGATIVE There is no mammographic evidence of malignancy. A 1 year screening mammogram is recommended. Based on the Tyrer Cuzick model (a risk assessment model) the patient's lifetime risk is 11.0% and her 10 year risk is 4.1%. According to the ACR, ACS, and NCCN guidelines, an annual breast MRI exam along with mammogram is recommended if the patient's lifetime risk is 20% or greater. This exam was interpreted at Station ID: [id number]. NOTE: For mammograms, a report in lay terms will be sent to the patient. Approximately 15% of breast malignancies will not be visualized mammographically. In the management of a palpable breast mass, a negative mammogram must not discourage biopsy of a clinically suspicious lesion. Electronically Signed By: Eliezer guerra/[email or web address]:06/08/2024 20:20:16 letter sent: Normal Exam ACR BI-RADS Category 1: Negative
== END ==
PROVIDERS: Family Provider Family Medicine; PCP Student in an Organized Health Care Education/Training Program; Referring Provider Student in an Organized Health Care Education/Training Program; Visit Provider Student in an Organized Health Care Education/Training Program
DX: Z12.31 Encounter for screening mammogram for malignant neoplasm of breast (principal); R92.333 Mammographic heterogeneous density, bilateral breasts
CPT/HCPCS: 77063; 77067